=== PATIENT | male | born 1950 | race African-American/Black ===

== ENCOUNTER 2022-01-09 14:13 | Outpatient (REF) | payer MEDICARE, OTHER, SELFPAY ==
[2022-01-09 14:37] LABS: MANUAL DIFF FLAG NO
[2022-01-09 14:41] LABS: Basophils Absolute Auto 0.1 X10*3/uL (0.0-0.2); Basophils Percent Auto 1.1 % (0-2); Eosinophils Absolute Auto 0.3 X10*3/uL (0.0-0.4); Eosinophils Percent Auto 5.4 % (0-4); Hematocrit 38.1 % (42.0-52.0); Hemoglobin 12.3 g/dl (14.0-18.0); Imm Gran Abs Auto 0.01 X10*3/uL (0.00-0.03); Imm Gran Pct Auto 0.2 % (0.0-0.4); Lymphocytes Absolute Auto 1.3 X10*3/uL (1.2-4.9); Lymphocytes Percent Auto 23.1 % (20-40); Mean Corpuscular HGB Conc 32.3 g/dl (31.0-36.0); Mean Corpuscular Hemoglobin 28.2 pg (27.0-33.0); Mean Corpuscular Volume 87.4 fL (80.0-98.0); Mean Platelet Volume 11.2 fL (9.4-12.4); Monocytes Absolute Auto 0.4 X10*3/uL (0.1-1.2); Monocytes Percent Auto 7.7 % (2-11); Neutrophils Absolute Auto 3.4 x10*3/uL (2.0-8.3); Neutrophils Percent Auto 62.5 % (45-73); Platelet Count 163 X10*3/uL (160-400); Red Blood Count 4.36 X10*6/uL (4.60-5.80); Red Cell Distribution Width 15.6 % (11.0-16.0); White Blood Count 5.4 X10*3/uL (4.8-10.8)
== END 2022-01-09 14:14 | disposition home or self-care (01) ==
LOC: HO.LAB 14:13
PROVIDERS: PCP Internal Medicine; Visit Provider Internal Medicine Pulmonary Disease
DX: J45.909 Unspecified asthma, uncomplicated (principal); Z91.09 Other allergy status, other than to drugs and biological substances; G47.33 Obstructive sleep apnea (adult) (pediatric)
CPT/HCPCS: 36415; 82785; 85025; 86003; 99202

== ENCOUNTER 2022-02-14 10:50 | Outpatient (REF) | payer MEDICARE, OTHER, SELFPAY ==
--- NOTE | 2022-02-14 14:43 | PFT_ITS ---
Forced vital capacity 101%, FEV1 88%, FEV1/FVC ratio is 66. [id number] 46% and MVV is 68%. Post-bronchodilator therapy, there is a slight improvement in FEV1 and a rather significant improvement in [id number]. Total lung capacity 87%. Residual volume 92%. Diffusion capacity 58%. CONCLUSION: Obstructive airway disorder, mild to moderate, there is a mild improvement after bronchodilator therapy. These findings suggest asthma/COPD overlap syndrome. Clinical correlation recommended. MD RYLAN Nuñez/MODL / [id number]
== END 2022-02-14 10:51 | disposition home or self-care (01) ==
LOC: HO.RESP 10:50
PROVIDERS: PCP Internal Medicine; Visit Provider Internal Medicine Pulmonary Disease
DX: J45.909 Unspecified asthma, uncomplicated (principal)
CPT/HCPCS: 94060; 94727; 94729

== ENCOUNTER → 2022-02-20 11:09 | Outpatient (BNVA) | payer MEDICARE, OTHER, SELFPAY | PROVIDERS: PCP Internal Medicine; Visit Provider Internal Medicine Pulmonary Disease | DX: J45.909 Unspecified asthma, uncomplicated (principal); G47.33 Obstructive sleep apnea (adult) (pediatric); Z91.09 Other allergy status, other than to drugs and biological substances; Z79.899 Other long term (current) drug therapy | CPT/HCPCS: 99212 ==

== ENCOUNTER 2022-04-07 10:58 | Outpatient (REF) | payer MEDICARE, OTHER, SELFPAY | END 2022-04-07 10:59 | disposition home or self-care (01) | LOC: HO.MDS 10:58 | PROVIDERS: Visit Provider Internal Medicine Pulmonary Disease | DX: J45.50 Severe persistent asthma, uncomplicated (principal) | CPT/HCPCS: 96372 ==

== ENCOUNTER → 2022-05-04 13:21 | Outpatient (BNVA) | payer MEDICARE, OTHER, SELFPAY | PROVIDERS: PCP Internal Medicine; Visit Provider Internal Medicine Pulmonary Disease | DX: Z09 Encounter for follow-up examination after completed treatment for conditions other than malignant neoplasm (principal); J45.909 Unspecified asthma, uncomplicated; G47.33 Obstructive sleep apnea (adult) (pediatric); Z91.09 Other allergy status, other than to drugs and biological substances; Z99.89 Dependence on other enabling machines and devices | CPT/HCPCS: 99212 ==

== ENCOUNTER 2022-05-05 11:05 | Outpatient (REF) | payer MEDICARE, OTHER, SELFPAY | END 2022-05-05 11:06 | disposition home or self-care (01) | LOC: HO.MDS 11:05 | PROVIDERS: Visit Provider Internal Medicine Pulmonary Disease | DX: J45.50 Severe persistent asthma, uncomplicated (principal) | CPT/HCPCS: 96372 ==

== ENCOUNTER 2022-06-02 11:11 | Outpatient (REF) | payer MEDICARE, OTHER, SELFPAY | END 2022-06-02 11:12 | disposition home or self-care (01) | LOC: HO.MDS 11:11 | PROVIDERS: Visit Provider Internal Medicine Pulmonary Disease | DX: J45.50 Severe persistent asthma, uncomplicated (principal) | CPT/HCPCS: 96372; J0517 ==

== ENCOUNTER → 2022-07-14 14:00 | Outpatient (BNVA) | payer MEDICARE, OTHER, SELFPAY | PROVIDERS: PCP Internal Medicine; Visit Provider Internal Medicine Pulmonary Disease | DX: J45.909 Unspecified asthma, uncomplicated (principal); Z91.09 Other allergy status, other than to drugs and biological substances; G47.33 Obstructive sleep apnea (adult) (pediatric) | CPT/HCPCS: 99212 ==

== ENCOUNTER 2022-07-31 14:10 | Outpatient (REF) | payer MEDICARE, OTHER, SELFPAY | END 2022-07-31 14:11 | disposition home or self-care (01) | LOC: HO.MDS 14:10 | PROVIDERS: Visit Provider Internal Medicine Pulmonary Disease | DX: J45.50 Severe persistent asthma, uncomplicated (principal) | CPT/HCPCS: 96372 ==

== ENCOUNTER 2022-09-29 09:04 | Outpatient (REF) | payer MEDICARE, OTHER, SELFPAY | END 2022-09-29 09:05 | disposition home or self-care (01) | LOC: HO.MDS 09:04 | PROVIDERS: Visit Provider Internal Medicine Pulmonary Disease | DX: J45.50 Severe persistent asthma, uncomplicated (principal) | CPT/HCPCS: 96372; J0517 ==

== ENCOUNTER 2022-11-24 09:06 | Outpatient (REF) | payer MEDICARE, OTHER, SELFPAY | END 2022-11-24 09:07 | disposition home or self-care (01) | LOC: HO.MDS 09:06 | PROVIDERS: Visit Provider Internal Medicine Pulmonary Disease | DX: J45.50 Severe persistent asthma, uncomplicated (principal) | CPT/HCPCS: 96372 ==

== ENCOUNTER 2023-01-16 10:24 | Outpatient (AMB) | payer MEDICARE, OTHER, SELFPAY ==
--- NOTE | 2023-01-16 10:28 | MHC.OFFVIS ---
Intake Vital Signs 01/16/23 10:29 Height 6 ft 2 in Weight 178 lb 9.191 oz BMI 22.9 BP 98/58 L Blood Pressure Location Rt brachial Position Sitting Pulse Oximetry (%) 97 Oxygen Delivery Method Room Air Intake Visit Reasons: COPD Allergies No Known Allergies Allergy (Verified 01/16/23 10:35) HPI COPD HPI Details 72-year-old gentleman with underlying history of asthma and MORELIA on ASV, previously followed at [facility] pulmonary, with underlying systolic congestive heart failure with EF of approximately 25%, now followed for persistent allergic asthma and MORELIA.? He has been on Fasenra, Symbicort, Incruse, and duo nebs with good control of his underlying symptoms. He denies recent exacerbations. Today initially noted to have lobe pulse, however EKG demonstrated bigeminy with pulse of 75 bpm. [facility] Medical History (Updated 01/12/23 @ 12:46 by Rhonda Zapata PA-C) ICD (implantable cardioverter-defibrillator) in place Nonischemic cardiomyopathy (HFpEF) heart failure with preserved ejection fraction History of DVT (deep vein thrombosis) Hypertension Hyperlipidemia Type 1 diabetes mellitus Chronic kidney disease, stage 3 PAF (paroxysmal atrial fibrillation) Asthma Environmental allergies MORELIA (obstructive sleep apnea) Hypothyroid Surgical History (Updated 01/12/23 @ 12:47 by Rhonda Zapata PA-C) History of implantable cardiac defibrillator (ICD) History of cardiac radiofrequency ablation History of prostatectomy Review of Systems Const Denies daytime sleepiness, Denies excessive sweating, Denies fatigue, Denies fever(s), Denies lethargy, Denies malaise, Denies night sweats, Denies snoring and Denies weight loss Eyes Denies blurry vision and Denies itchy eyes ENT Denies nasal congestion, Denies post nasal drip, Denies sinus pain, Denies sinus pressure and Denies other ( Thrush) Card Denies chest pain, Denies pedal edema, Denies dyspnea, Denies orthopnea and Denies paroxysmal nocturnal dyspnea Resp Denies cough, Denies hemoptysis, Denies excessive phlegm production, Denies dyspnea, Denies snoring and Denies wheezing GI Denies abdominal pain and Denies heartburn Musc Denies myalgias, Denies arthralgias and Denies joint swelling Skin/Breast Denies rash Neuro Denies memory loss and Denies seizure-like activity Psych Denies abnormal sleep pattern, Denies anxiety and Denies memory loss Endo Denies excessive sweating, Denies fatigue and Denies heat intolerance Felix/Lymph Denies easy bruising Aller/Immun Denies itchy eyes, Denies seasonal rhinorrhea and Denies wheezing Physical Exam Vital Signs: Last Vital Signs BP 98/58 L 01/16/23 10:29 Pulse Ox 97 01/16/23 10:29 Oxygen Delivery Method Room Air 01/16/23 10:29 BMI result Body Mass Index 22.9 Const General: no acute distress and alert Nutritional Appearance: not obese Orientation/consciousness: Other orientation findings ( oriented) HEENT Head: Yes atraumatic Eyes General: appearance normal, both eyes and all related structures Sclerae: sclerae normal EOM: EOMs intact bilaterally Neck Neck: Yes supple Lymphatic: no lymphadenopathy noted Resp Effort & Inspection: normal respiratory effort and no use of accessory muscles Auscultation: clear to auscultation bilaterally Cardio Rate: regular rate Rhythm: regular rhythm Heart sounds: no gallops, no murmurs and no rubs Skin General skin exam: other ( warm) Extrem General: No clubbing, No cyanosis and No edema Assessment & Plan Assessment & Plan (1) Asthma: Code(s): J45.909 - Unspecified asthma, uncomplicated Plan: Well controlled on current regimen of Fasenra, Incruse, Symbicort, and duo nebs. Continue current regimen. (2) MORELIA (obstructive sleep apnea): Code(s): G47.33 - Obstructive sleep apnea (adult) (pediatric) Plan: Well controlled on current ASV therapy. Continue ASV therapy (3) Environmental allergies: Code(s): Z91.09 - Other allergy status, other than to drugs and biological substances Plan: Well controlled on Fasenra. Continue current regimen. Coding Level of Care Code Est Pt Level 4 (92280) Diagnoses Asthma J45.909 MORELIA (obstructive sleep apnea) G47.33 Environmental allergies Z91.09
[2023-01-16 10:29] VITALS: BP 98/58; O2SAT 97; BMI 22.9
== END 2023-01-16 11:00 | disposition home or self-care (01) ==
PROVIDERS: PCP Internal Medicine; Visit Provider Internal Medicine Pulmonary Disease
DX: J45.909 Unspecified asthma, uncomplicated (principal); G47.33 Obstructive sleep apnea (adult) (pediatric); Z91.09 Other allergy status, other than to drugs and biological substances
CPT/HCPCS: 99214

== ENCOUNTER → 2023-01-16 10:24 | Outpatient (BNVA) | payer MEDICARE, OTHER, SELFPAY | PROVIDERS: Visit Provider Internal Medicine Pulmonary Disease | DX: J45.40 Moderate persistent asthma, uncomplicated (principal); G47.33 Obstructive sleep apnea (adult) (pediatric); I11.0 Hypertensive heart disease with heart failure; I50.23 Acute on chronic systolic (congestive) heart failure; Z91.09 Other allergy status, other than to drugs and biological substances | CPT/HCPCS: 99212 ==

== ENCOUNTER 2023-01-19 09:02 | Outpatient (REF) | payer MEDICARE, OTHER, SELFPAY | END 2023-01-19 09:03 | disposition home or self-care (01) | LOC: HO.MDS 09:02 | PROVIDERS: Visit Provider Internal Medicine Pulmonary Disease | DX: J45.50 Severe persistent asthma, uncomplicated (principal) | CPT/HCPCS: 96372 ==

== ENCOUNTER 2023-03-16 10:57 | Outpatient (REF) | payer MEDICARE, OTHER, SELFPAY | END 2023-03-16 10:58 | disposition home or self-care (01) | LOC: HO.MDS 10:57 | PROVIDERS: Visit Provider Internal Medicine Pulmonary Disease | DX: J45.50 Severe persistent asthma, uncomplicated (principal) | CPT/HCPCS: 96372 ==

== ENCOUNTER 2023-05-11 09:35 | Outpatient (REF) | payer MEDICARE, OTHER, SELFPAY ==
[2023-05-11 09:56] VITALS: BP 111/62; PULSE 62; RESP 18; TEMP 36.1
== END 2023-05-11 09:36 | disposition home or self-care (01) ==
LOC: HO.MDS 09:35
PROVIDERS: Visit Provider Internal Medicine Pulmonary Disease
DX: J45.50 Severe persistent asthma, uncomplicated (principal)
CPT/HCPCS: 96372

== ENCOUNTER 2023-07-12 10:15 | Outpatient (AMB) | payer MEDICARE, OTHER, SELFPAY ==
[2023-07-12 10:16] VITALS: BP 100/62; PULSE 60; O2SAT 97; BMI 23.3
--- NOTE | 2023-07-12 10:16 | MHC.OFFVIS ---
Vital Signs 07/12/23 10:16 Height 6 ft 2 in Weight 181 lb 14.102 oz BMI 23.3 BP 100/62 Blood Pressure Location Rt brachial Position Sitting Pulse 60 Pulse Source Doppler Pulse Oximetry (%) 97 Oxygen Delivery Method Room Air Intake Visit Reasons: COPD Allergies No Known Allergies Allergy (Verified 07/12/23 10:26) HPI HPI COPD: Details: 73-year-old gentleman with underlying history of asthma and MORELIA on ASV, previously followed at [facility], with underlying systolic congestive heart failure with EF of approximately 25%, now followed for persistent allergic asthma and MORELIA.? He has been on Fasenra, Symbicort, Incruse, and duo nebs with good control of his underlying symptoms. He denies recent exacerbations. [facility] Medical History (Updated 01/12/23 @ 12:46 by Rhonda Zapata PA-C) ICD (implantable cardioverter-defibrillator) in place Nonischemic cardiomyopathy (HFpEF) heart failure with preserved ejection fraction History of DVT (deep vein thrombosis) Hypertension Hyperlipidemia Type 1 diabetes mellitus Chronic kidney disease, stage 3 PAF (paroxysmal atrial fibrillation) Asthma Environmental allergies MORELIA (obstructive sleep apnea) Hypothyroid Surgical History (Updated 01/12/23 @ 12:47 by Rhonda Zapata PA-C) History of implantable cardiac defibrillator (ICD) History of cardiac radiofrequency ablation History of prostatectomy Review of Systems Const Denies daytime sleepiness, Denies excessive sweating, Denies fatigue, Denies fever(s), Denies lethargy, Denies malaise, Denies night sweats, Denies snoring and Denies weight loss Eyes Denies blurry vision and Denies itchy eyes ENT Denies nasal congestion, Denies post nasal drip, Denies sinus pain, Denies sinus pressure and Denies other ( Thrush) Card Denies chest pain, Denies pedal edema, Denies dyspnea, Denies orthopnea and Denies paroxysmal nocturnal dyspnea Resp Denies cough, Denies hemoptysis, Denies excessive phlegm production, Denies dyspnea, Denies snoring and Denies wheezing GI Denies abdominal pain and Denies heartburn Musc Denies myalgias, Denies arthralgias and Denies joint swelling Skin/Breast Denies rash Neuro Denies memory loss and Denies seizure-like activity Psych Denies abnormal sleep pattern, Denies anxiety and Denies memory loss Endo Denies excessive sweating, Denies fatigue and Denies heat intolerance Felix/Lymph Denies easy bruising Aller/Immun Denies itchy eyes, Denies seasonal rhinorrhea and Denies wheezing Physical Exam Vital Signs: Last Vital Signs Pulse 60 07/12/23 10:16 BP 100/62 07/12/23 10:16 Pulse Ox 97 07/12/23 10:16 Oxygen Delivery Method Room Air 07/12/23 10:16 BMI result Body Mass Index 23.3 Const General: no acute distress and alert Nutritional Appearance: not obese Orientation/consciousness: Other orientation findings ( oriented) HEENT Head: Yes atraumatic Eyes General: appearance normal, both eyes and all related structures Sclerae: sclerae normal EOM: EOMs intact bilaterally Neck Neck: Yes supple Lymphatic: no lymphadenopathy noted Resp Effort & Inspection: normal respiratory effort and no use of accessory muscles Auscultation: clear to auscultation bilaterally Cardio Rate: regular rate Rhythm: regular rhythm Heart sounds: no gallops, no murmurs and no rubs Skin General skin exam: other ( warm) Extrem General: No clubbing, No cyanosis and No edema Assessment & Plan Assessment & Plan (1) Asthma: Code(s): J45.909 - Unspecified asthma, uncomplicated Category: Medical Plan: Well controlled current regimen of Fasenra, Breo, Incruse, duo nebs, and albuterol MDI. Continue current regimen. (2) Environmental allergies: Code(s): Z91.09 - Other allergy status, other than to drugs and biological substances Category: Medical Plan: Well controlled on Fasenra. Continue current regimen. (3) MORELIA (obstructive sleep apnea): Code(s): G47.33 - Obstructive sleep apnea (adult) (pediatric) Category: Medical Plan: Well controlled on current ASV therapy. Continue current NIPPV therapy. Coding Level of Care Code Est Pt Level 4 (10762) Diagnoses Asthma J45.909 Environmental allergies Z91.09 MORELIA (obstructive sleep apnea) G47.33
== END 2023-07-12 10:36 | disposition home or self-care (01) ==
PROVIDERS: PCP Internal Medicine; Visit Provider Internal Medicine Pulmonary Disease
DX: J45.909 Unspecified asthma, uncomplicated (principal); Z91.09 Other allergy status, other than to drugs and biological substances; G47.33 Obstructive sleep apnea (adult) (pediatric)
CPT/HCPCS: 99214

== ENCOUNTER → 2023-07-12 10:15 | Outpatient (BNVA) | payer MEDICARE, OTHER, SELFPAY | PROVIDERS: PCP Internal Medicine; Visit Provider Internal Medicine Pulmonary Disease | DX: J45.909 Unspecified asthma, uncomplicated (principal); Z91.09 Other allergy status, other than to drugs and biological substances; G47.33 Obstructive sleep apnea (adult) (pediatric) | CPT/HCPCS: 99212 ==

== ENCOUNTER 2024-01-17 10:24 | Outpatient (AMB) | payer MEDICARE, OTHER, SELFPAY ==
[2024-01-17 10:30] VITALS: BP 102/66; PULSE 81; O2SAT 97; BMI 24.0
--- NOTE | 2024-01-17 10:30 | MHC.OFFVIS ---
Vital Signs 01/17/24 10:30 Height 6 ft 2 in Weight 187 lb BMI 24.0 BP 102/66 Blood Pressure Location Rt brachial Position Sitting Pulse 81 Pulse Source Doppler Pulse Oximetry (%) 97 Oxygen Delivery Method Room Air Intake Visit Reasons: COPD Allergies reglan Adverse Reaction (Severe, Uncoded 01/17/24 10:35) Tremors HPI HPI COPD: Details: 73-year-old gentleman with underlying history of asthma and MORELIA on ASV, previously followed at [facility], with underlying systolic congestive heart failure with EF of approximately 25%, now followed for persistent allergic asthma and MORELIA.? He has been on Fasenra, Dulera, Incruse, and duo nebs with good baseline control of his underlying symptoms. Today he complains of an acute exacerbation that started around the time he his COVID vaccination and is now symptomatic with cough productive of increased amount of sputum and also some postnasal drip. [facility] Medical History (Updated 07/18/23 @ 15:38 by Nils Hart MD) ICD (implantable cardioverter-defibrillator) in place Nonischemic cardiomyopathy (HFpEF) heart failure with preserved ejection fraction History of DVT (deep vein thrombosis) Hypertension Hyperlipidemia Type 1 diabetes mellitus Chronic kidney disease, stage 3 PAF (paroxysmal atrial fibrillation) Asthma Environmental allergies MORELIA (obstructive sleep apnea) Hypothyroid Surgical History (Updated 01/12/23 @ 12:47 by Rhonda Zapata PA-C) History of implantable cardiac defibrillator (ICD) History of cardiac radiofrequency ablation History of prostatectomy Review of Systems ENT Reports nasal congestion and Reports post nasal drip Card Denies chest pain Resp Reports cough and Reports excessive phlegm production Physical Exam Vital Signs: Last Vital Signs Pulse 81 01/17/24 10:30 BP 102/66 01/17/24 10:30 Pulse Ox 97 01/17/24 10:30 Oxygen Delivery Method Room Air 01/17/24 10:30 BMI result Body Mass Index 24.0 Const General: no acute distress and alert Nutritional Appearance: not obese Orientation/consciousness: Other orientation findings ( oriented) HEENT Head: Yes atraumatic Eyes General: appearance normal, both eyes and all related structures Sclerae: sclerae normal EOM: EOMs intact bilaterally Neck Neck: Yes supple Lymphatic: no lymphadenopathy noted Resp Effort & Inspection: normal respiratory effort and no use of accessory muscles Auscultation: clear to auscultation bilaterally Cardio Rate: regular rate Rhythm: regular rhythm Heart sounds: no gallops, no murmurs and no rubs Skin General skin exam: other ( warm) Extrem General: No clubbing and No cyanosis Assessment & Plan Assessment & Plan (1) MORELIA (obstructive sleep apnea): Code(s): G47.33 - Obstructive sleep apnea (adult) (pediatric) Category: Medical Plan: Well controlled on noninvasive positive pressure ventilation. Continue current regimen. (2) Severe persistent asthma: Code(s): J45.50 - Severe persistent asthma, uncomplicated Category: Medical Plan: Baseline controlled on Dulera, Incruse, duo nebs, Fasenra, and albuterol MDI. Continue current regimen. Now with a bronchitic exacerbation, will treat with a course of azithromycin. (3) Environmental allergies: Code(s): Z91.09 - Other allergy status, other than to drugs and biological substances Category: Medical Plan: Reasonable control on Fasenra. Continue current regimen. Medications: New azithromycin For 250 mg dose pack: take 500 mg today (day 1), then 250 mg for 4 days (days 2-5) PO 6 tabs 0RF Coding Level of Care Code Est Pt Level 4 (39053) Complex EM visit Add On G2211 Diagnoses MORELIA (obstructive sleep apnea) G47.33 Severe persistent asthma J45.50 Environmental allergies Z91.09
== END 2024-01-17 10:52 | disposition home or self-care (01) ==
LOC: HO.HPS 10:25
PROVIDERS: PCP Internal Medicine; Visit Provider Internal Medicine Pulmonary Disease
DX: G47.33 Obstructive sleep apnea (adult) (pediatric) (principal); J45.50 Severe persistent asthma, uncomplicated; Z91.09 Other allergy status, other than to drugs and biological substances
CPT/HCPCS: 99214; G2211

== ENCOUNTER → 2024-01-17 10:24 | Outpatient (BNVA) | payer MEDICARE, OTHER, SELFPAY | PROVIDERS: PCP Internal Medicine; Visit Provider Internal Medicine Pulmonary Disease | DX: J45.50 Severe persistent asthma, uncomplicated (principal); G47.33 Obstructive sleep apnea (adult) (pediatric); Z91.09 Other allergy status, other than to drugs and biological substances | CPT/HCPCS: 99212 ==

== ENCOUNTER 2024-07-22 14:34 | Outpatient (AMB) | payer MEDICARE, OTHER, SELFPAY ==
[2024-07-22 14:42] VITALS: BP 104/62; PULSE 79; O2SAT 98; BMI 25.0
--- NOTE | 2024-07-22 14:42 | MHC.OFFVIS ---
Vital Signs 07/22/24 14:42 Height 6 ft 2 in Weight 195 lb BMI 25.0 BP 104/62 Blood Pressure Location Rt brachial Position Sitting Pulse 79 Pulse Source Pulse Oximeter Pulse Oximetry (%) 98 Oxygen Delivery Method Room Air Intake Visit Reasons: COPD Allergies reglan Adverse Reaction (Severe, Uncoded 01/17/24 10:35) Tremors HPI HPI COPD: Details: 74-year-old gentleman with underlying history of asthma and MORELIA on ASV, previously followed at [facility], with underlying systolic congestive heart failure with EF of approximately 25%, now followed for persistent allergic asthma and MORELIA.? He has been on Fasenra, Dulera, Incruse, and duo nebs with good baseline control of his underlying symptoms. He denies recent exacerbations. He is compliant with his ASV therapy. [facility] Medical History (Updated 07/18/23 @ 15:38 by Nils Hart MD) ICD (implantable cardioverter-defibrillator) in place Nonischemic cardiomyopathy (HFpEF) heart failure with preserved ejection fraction History of DVT (deep vein thrombosis) Hypertension Hyperlipidemia Type 1 diabetes mellitus Chronic kidney disease, stage 3 PAF (paroxysmal atrial fibrillation) Asthma Environmental allergies MORELIA (obstructive sleep apnea) Hypothyroid Surgical History (Updated 01/12/23 @ 12:47 by Rhonda Zapata PA-C) History of implantable cardiac defibrillator (ICD) History of cardiac radiofrequency ablation History of prostatectomy Review of Systems Const Denies daytime sleepiness, Denies excessive sweating, Denies fatigue, Denies fever(s), Denies lethargy, Denies malaise, Denies night sweats, Denies snoring and Denies weight loss Eyes Denies blurry vision and Denies itchy eyes ENT Denies nasal congestion, Denies post nasal drip, Denies sinus pain, Denies sinus pressure and Denies other ( Thrush) Card Denies chest pain, Denies pedal edema, Denies dyspnea, Denies orthopnea and Denies paroxysmal nocturnal dyspnea Resp Denies cough, Denies hemoptysis, Denies excessive phlegm production, Denies dyspnea, Denies snoring and Denies wheezing GI Denies abdominal pain and Denies heartburn Musc Denies myalgias, Denies arthralgias and Denies joint swelling Skin/Breast Denies rash Neuro Denies memory loss and Denies seizure-like activity Psych Denies abnormal sleep pattern, Denies anxiety and Denies memory loss Endo Denies excessive sweating, Denies fatigue and Denies heat intolerance Felix/Lymph Denies easy bruising Aller/Immun Denies itchy eyes, Denies seasonal rhinorrhea and Denies wheezing Physical Exam Vital Signs: Last Vital Signs Pulse 79 07/22/24 14:42 BP 104/62 07/22/24 14:42 Pulse Ox 98 07/22/24 14:42 Oxygen Delivery Method Room Air 07/22/24 14:42 BMI result Body Mass Index 25.0 Const General: no acute distress and alert Nutritional Appearance: not obese Orientation/consciousness: Other orientation findings ( oriented) HEENT Head: Yes atraumatic Eyes General: appearance normal, both eyes and all related structures Sclerae: sclerae normal EOM: EOMs intact bilaterally Neck Neck: Yes supple Lymphatic: no lymphadenopathy noted Resp Effort & Inspection: normal respiratory effort and no use of accessory muscles Auscultation: clear to auscultation bilaterally Cardio Rate: regular rate Rhythm: regular rhythm Heart sounds: no gallops, no murmurs and no rubs Skin General skin exam: other ( warm) Extrem General: No clubbing, No cyanosis and No edema Assessment & Plan Assessment & Plan (1) Severe persistent asthma: Code(s): J45.50 - Severe persistent asthma, uncomplicated Category: Medical Plan: Well controlled on current regimen of Fasenra, Dulera, duo nebs, and albuterol MDI. Continue current regimen. (2) Environmental allergies: Code(s): Z91.09 - Other allergy status, other than to drugs and biological substances Category: Medical Plan: Well controlled on Fasenra. Continue current regimen. (3) MORELIA (obstructive sleep apnea): Code(s): G47.33 - Obstructive sleep apnea (adult) (pediatric) Category: Medical Plan: Well controlled on current ASV therapy. Continue current regimen. Medications: Refilled Ventolin HFA 90 mcg/actuation (albuterol sulfate) 2 puffs inhalation Q4-6H PRN 18 ea 6RF for wheezing NS mometasone-formoterol 200-5 mcg/actuation (Dulera) 2 puffs inhalation BID 1 ea 6RF Coding Level of Care Code Est Pt Level 4 (19607) Complex EM visit Add On G2211 Diagnoses Severe persistent asthma J45.50 Environmental allergies Z91.09 MORELIA (obstructive sleep apnea) G47.33
--- OUTSIDE RECORDS SUMMARY | 2024-07-22 15:42 | XMS_ITS | Encounter Summary ---
Author Organization [facility] Address [address] [place] [address] Phone Care Team Providers Care Parent Trainer Name Role Phone Marilia Zhang MD Primary Care Provider [phone] Reason for Visit * Reason Comments Med Refill Encounter Details Date Type Department Care Team (Late st Contact Info) Description 02/11/2024 Refill [facility] [address] [address] Maxime Vargas DO [address] [place] [address] Social History Tobacco Use Types Packs/Day Years Used Date Smoking Tobacco: Never Alcohol Use Standard Drinks/Week Comments Yes 0 (1 standard drink = 0.6 oz pure alcohol) Alcoholic Drinks/day: Occasional social drink Sex and Gender Information Value Date Recorded Sex Assigned at Not on file Legal Sex Male 4:35 PM EST Gender Identity Not on file Sexual Orientation Not on file documented as of this encounter Plan of Treatment Upcoming Encounters Date Type Department Care Team (Late st Contact Info) Description 08/15/2024 3:45 PM EDT Office Visit [facility] [address] [place] [id number] Maxime Vargas DO [address] [place] [address] documented as of this encounter Visit Diagnoses Not on filedocumented in this encounter Care Teams Parent Trainer Relationship Specialty Start Date End Date Marilia Zhang MD [address] [place] [address] PCP - General 01/14/19 documented as of this encounter
--- OUTSIDE RECORDS SUMMARY | 2024-07-22 15:42 | XMS_ITS | Clinical Summary ---
Author Organization [facility], Address [address] [place] [address] Phone Care Team Providers Care Car Starter Name Role Phone Marilia Zhang MD Primary Care Provider [phone] Allergies Active Allergy Reactions Criticality Noted Date Comments Bee Pollen Other (see comments) 03/04/2019 Other reaction(s): Other (See Comments) Tree Pollens not Bee pollens Tree Pollens not Bee pollens Cat Dander Anaphylaxis High 12/17/2020 Grass Pollen Standardized Ext 08/18/2021 Other reaction(s): asthma attack Molds & Smuts 08/18/2021 Other reaction(s): asthma attack Other 08/18/2021 Other reaction(s): mouth and throat swells Peanut (Diagnostic) High 12/06/2017 Other reaction(s): Angiodema Pollen Extract Other (see comments) 03/04/2019 Medications apixaban (ELIQUIS) 5 MG tablet Take 5 mg by mouth twice a day Active budesonide-form oterol (SYMBICORT) 160-4.5 MCG/ACT inhaler Comments: Filled Date: Apr 22 2018 12:00AM Patient Notes: TAKE 2 PUFFS BY MOUTH TWICE A DAY *USE WITH SPACER CHAMBER RINSE MOUTH AND THROAT AFTER USE Duration: 90 9 Active fexofenadine (PERLA) 180 MG tablet Take 1 tablet by mouth 1 (one) time each day Active fluticasone (VERAMYST) 27.5 MCG/SPRAY nasal spray Administer 1 spray into affected nostril(s) daily Active insulin aspart (NOVOLOG) 100 UNIT/ML injection Comments: Filled Date: Mar 11 2018 12:00AM Patient Notes: USE VIA INSULIN PUMP, UP TO 50 UNITS PER DAY Duration: 90 8 Active insulin glargine (LANTUS SOLOSTAR) 100 UNIT/ML injection Inject 17 Units under the skin daily 9 Active torsemide (DEMADEX) 20 MG tablet Take 20 mg by mouth in the morning and 20 mg in the evening. Active ASPIRIN 81 PO Take 1 tablet by mouth 1 (one) time each day Active pantoprazole (PROTONIX) 40 MG EC tablet 9 Active Blood Pressure kit 1 kit 1 (one) time each day To check blood pressure at home 1 each 0 Active Insulin Disposable Pump (OMNIPOD 5 PACK) misc 0 Active sacubitril-vals jean carlos (Entresto) 49-51 MG per tablet Take 1 tablet by mouth 2 (two) times a day Active metoprolol succinate XL (TOPROL XL) 50 MG 24 hr tablet Take 75 mg by mouth 1 (one) time each day 2 Active levothyroxine (SYNTHROID, LEVOTHROID) 25 MCG tablet TAKE 1 TABLET (25 MCG) BY ORAL ROUTE ONCE DAILY ON AN EMPTY STOMACH 30 MINUTES BEFORE BREAKFAST 2 Active spironolactone (ALDACTONE) 25 MG tablet Take 25 mg by mouth 1 (one) time each day Active torsemide (DEMADEX) 10 MG tablet Take 10 mg by mouth 1 (one) time each day Active Active Problems Problem Noted Date Diagnosed Date Carcinoma of prostate 06/01/2021 Chronic systolic heart failure 06/02/2020 Stage 3b chronic kidney disease 03/04/2019 Edema 03/04/2019 Hyperuricemia 03/04/2019 Hypertension 06/04/2017 Overview (03/04/2019): Last Assessment & Plan: Blood pressure is in good range today Clinically euvolemic though occ symptoms suggest that he may be hypovolemic, we discussed fine line between avoiding fluid overload and effects of this on cardiac function and also keeping kidneys well perfused, doing well overall with fluid and sodium restrictions Type 1 diabetes mellitus 02/14/2017 Overview (03/04/2019): DIABETES HISTORY Diagnosis - type 1, dx 1998 Last Assessment & Plan: Blood pressure is in excellent range Continues on insulin pump therapy and has been utilizing CGM Blood sugars in past two weeks are improved compared to earlier this summer though remain somewhat above goal, I expect repeat A1c will be improved based on these patterns, current A1c reflects the more consistent and significant hyperglycemia of several weeks ago Based on more recent data and likely improvement based on insulin delivery changes made today, Александр is likely ok to go ahead with surgery (if surgeon agreeable) if this is of a somewhat urgent nature Insulin pump present 02/14/2017 Overview (06/02/2020): Omnipod started 04/01/07 Dexcom G5 started 07/09/18 Last Assessment & Plan: Current insulin pump setting Time Basal Rates? Time ICR Time ISF Time Target IOB 12am 0.3 u/hr 12am 1:9 12 am 1:40 12 am 120 mg/dl 4hrs 4a 0.75 11a 10 ? 11a 0.6 5p 8 ? 4p 0.75 ? 930p 0.4 ? We did not adjust insulin pump settings today We discussed CGM data Immunizations Immunization Administration Dates Next Due Hepatitis B 04/21/2019(Deferred: Other) Moderna SARS-COV-2 01/14/2021,04/30/2020, 021 Shingrix 02/14/2021 Family History Medical History Relation Comments Heart failure Mother Relation Status Comments Mother Social History Tobacco Use Types Packs/Day Years Used Date Smoking Tobacco: Never Alcohol Use Standard Drinks/Week Comments Yes 0 (1 standard drink = 0.6 oz pure alcohol) Alcoholic Drinks/day: Occasional social drink Sex and Gender Information Value Date Recorded Sex Assigned at Not on file Legal Sex Male 4:35 PM EST Gender Identity Not on file Sexual Orientation Not on file Last Filed Vital Signs Vital Sign Reading Time Taken Comments Blood Pressure 94/50 04/11/2024 3:15 PM EST Pulse 68 04/11/2024 3:15 PM EST Temperature - - Respiratory Rate - - Oxygen Saturation - - Inhaled Oxygen Concentration - - Weight 85.7 kg (189 lb) 04/11/2024 3:15 PM EST Height 188 cm (6' 2 ) 01/31/2019 12:00 PM EST Body Mass Index 24.27 01/31/2019 12:00 PM EST Plan of Treatment Upcoming Encounters Date Type Department Care Team (Late st Contact Info) Description 08/15/2024 3:45 PM EDT Office Visit [facility], [address] [place] [address] Maxime Vargas DO [address] [place] [id number] Health Maintenance Due Date Last Done Comments Pneumococcal Vaccine: 50+ Years (1 of 2 - PCV) 1969 Colorectal Cancer Screening: Annual FOBT 05/19/1999 Colorectal Cancer Screening: Colonoscopy 05/19/1999 Colorectal Cancer Screening: Sigmoidoscopy 05/19/1999 Diabetes: Ophthalmology Exam 03/04/2019 Diabetes: Pedal Pulse Checked 03/04/2019 Diabetes: Sensory Foot Exam 03/04/2019 Diabetes: Visual Foot Exam 03/04/2019 Diabetes: Hemoglobin A1C 03/29/2024 024, 12/03/2023, 10/03/2023, Additional history exists Influenza Vaccine (Season Ended) 2024 Hepatitis B Vaccine Aged Out No longe r eligible based on patient's age to complete this topic Procedures Procedure Name Priority Date/Time Associated Diagnosis Comments HEMOGLOBIN A1C Routine 12/28/2023 10:37 AM EDT Stage 3b chronic kidney disease (HCC) 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 Prediabetes: 5.7 - 6.4 ? Diabetes: >6.4 ? Glycemic control for adults with diabetes: <7.0 Blood (Blood, Venous) 12/28/2023 10:37 AM EDT 12/28/2023 us Maxime Vargas DO LAB BLOOD ORDERABLES Final [facility] [address] [place] [address] from Last 3 Months or Most Recently Relevant to Health Maintenance Insurance Medicare [facility] Care Teams Car Starter Relationship Specialty Start Date End Date Marilia Zhang MD [address] [place] [address] PCP - General 01/14/19
--- OUTSIDE RECORDS SUMMARY | 2024-07-22 15:42 | XMS_ITS | Encounter Summary ---
Author Organization [facility], Address [address] [place] [address] Phone Care Team Providers Care Eviscerator Name Role Phone Marilia Zhang MD Primary Care Provider [phone] Encounter Details Date Type Department Care Team (Late st Contact Info) Description 09/29/2022 Documentation Only [facility] [address] [place] [address] Maxime Vargas DO [address] [place] [address] Social History Tobacco Use Types [...] Visit [facility] [address] [place] [address] Maxime Vargas DO [address] [place] [address] documented as of this encounter Visit Diagnoses Not on filedocumented in this encounter Care Teams Eviscerator Relationship Specialty Start Date End Date Marilia Zhang MD [address] [place] [address] PCP - General 01/14/19 documented as of this encounter
--- OUTSIDE RECORDS SUMMARY | 2024-07-22 15:42 | XMS_ITS | Encounter Summary ---
Author Organization [facility] [place], Address [address] [place] [address] Phone Care Team Providers Care Pharmacy Technician Infusion Name Role Phone Marilia Zhang MD Primary Care Provider [phone] Encounter Details Date Type Department Care Team (Late st Contact Info) Description 04/10/2024 Documentation Only [facility] [address] [place] [address] Maxime Vargas DO [address] [place] [address] Social History Tobacco Use Types [...] Visit [facility] [address] [place] [address] Maxime Vargas DO [address] [place] [address] documented as of this encounter Visit Diagnoses Not on filedocumented in this encounter Care Teams Pharmacy Technician Infusion Relationship Specialty Start Date End Date Marilia Zhang MD [address] [place] [address] PCP - General 01/14/19 documented as of this encounter
--- OUTSIDE RECORDS SUMMARY | 2024-07-22 15:42 | XMS_ITS | Encounter Summary ---
Author Organization [facility] [place], Address [address] [place] [address] Phone Care Team Providers Care Microsoft Systems Engineer Name Role Phone Marilia Zhang MD Primary Care Provider [phone] Encounter Details Date Type Department Care Team (Late st Contact Info) Description 12/07/2022 Documentation Only [facility] [address] [place] [address] Maxime Vargas DO [address] [place] [address] Social History Tobacco Use Types [...] Visit [facility] [address] [place] [address] Maxime Vargas DO [address] [place] [address] documented as of this encounter Visit Diagnoses Not on filedocumented in this encounter Care Teams Microsoft Systems Engineer Relationship Specialty Start Date End Date Marilia Zhang MD [address] [place] [address] PCP - General 01/14/19 documented as of this encounter
== END 2024-07-22 15:04 | disposition home or self-care (01) ==
LOC: HO.HPS 14:34
PROVIDERS: PCP Internal Medicine; Visit Provider Internal Medicine Pulmonary Disease
DX: J45.50 Severe persistent asthma, uncomplicated (principal); Z91.09 Other allergy status, other than to drugs and biological substances; G47.33 Obstructive sleep apnea (adult) (pediatric)
CPT/HCPCS: 99214; G2211

== ENCOUNTER → 2024-07-22 14:34 | Outpatient (BNVA) | payer MEDICARE, OTHER, SELFPAY | PROVIDERS: PCP Internal Medicine; Visit Provider Internal Medicine Pulmonary Disease | DX: J45.50 Severe persistent asthma, uncomplicated (principal); G47.33 Obstructive sleep apnea (adult) (pediatric); Z91.09 Other allergy status, other than to drugs and biological substances | CPT/HCPCS: 99212 ==

== ENCOUNTER 2024-12-17 14:22 | Outpatient (AMB) | payer MEDICARE, OTHER, SELFPAY ==
--- NOTE | 2024-12-17 14:23 | MHC.OFFVIS ---
Vital Signs 12/17/24 14:24 Height 6 ft 2 in Weight 197 lb BMI 25.3 BP 104/58 L Blood Pressure Location Rt brachial Position Sitting Pulse 89 Pulse Source Pulse Oximeter Pulse Oximetry (%) 96 Oxygen Delivery Method Room Air Intake Visit Reasons: COPD Allergies reglan Adverse Reaction (Severe, Uncoded 01/17/24 10:35) Tremors HPI HPI COPD: Details: 74-year-old gentleman with underlying history of asthma and MORELIA on ASV, previously followed at [facility], with underlying systolic congestive heart failure with EF of approximately 25%, now followed for persistent allergic asthma and MORELIA.? He has been on Fasenra, Dulera, Incruse, and duo nebs with good baseline control of his underlying symptoms. He denies recent exacerbations. He is compliant with his ASV therapy. No significant changes since prior. [facility] Medical History (Updated 07/18/23 @ 15:38 by Nils Hart MD) ICD (implantable cardioverter-defibrillator) in place Nonischemic cardiomyopathy (HFpEF) heart failure with preserved ejection fraction History of DVT (deep vein thrombosis) Hypertension Hyperlipidemia Type 1 diabetes mellitus Chronic kidney disease, stage 3 PAF (paroxysmal atrial fibrillation) Asthma Environmental allergies MORELIA (obstructive sleep apnea) Hypothyroid Surgical History (Updated 01/12/23 @ 12:47 by Rhonda Zapata PA-C) History of implantable cardiac defibrillator (ICD) History of cardiac radiofrequency ablation History of prostatectomy Review of Systems Const Denies daytime sleepiness, Denies excessive sweating, Denies fatigue, Denies fever(s), Denies lethargy, Denies malaise, Denies night sweats, Denies snoring and Denies weight loss Eyes Denies blurry vision and Denies itchy eyes ENT Denies nasal congestion, Denies post nasal drip, Denies sinus pain, Denies sinus pressure and Denies other ( Thrush) Card Denies chest pain, Denies pedal edema, Denies dyspnea, Denies orthopnea and Denies paroxysmal nocturnal dyspnea Resp Denies cough, Denies hemoptysis, Denies excessive phlegm production, Denies dyspnea, Denies snoring and Denies wheezing GI Denies abdominal pain and Denies heartburn Musc Denies myalgias, Denies arthralgias and Denies joint swelling Skin/Breast Denies rash Neuro Denies memory loss and Denies seizure-like activity Psych Denies abnormal sleep pattern, Denies anxiety and Denies memory loss Endo Denies excessive sweating, Denies fatigue and Denies heat intolerance Felix/Lymph Denies easy bruising Aller/Immun Denies itchy eyes, Denies seasonal rhinorrhea and Denies wheezing Physical Exam Vital Signs: Last Vital Signs Pulse 89 12/17/24 14:24 BP 104/58 L 12/17/24 14:24 Pulse Ox 96 12/17/24 14:24 Oxygen Delivery Method Room Air 12/17/24 14:24 BMI result Body Mass Index 25.3 Const General: no acute distress and alert Nutritional Appearance: not obese Orientation/consciousness: Other orientation findings ( oriented) HEENT Head: Yes atraumatic Eyes General: appearance normal, both eyes and all related structures Sclerae: sclerae normal EOM: EOMs intact bilaterally Neck Neck: Yes supple Lymphatic: no lymphadenopathy noted Resp Effort & Inspection: normal respiratory effort and no use of accessory muscles Auscultation: clear to auscultation bilaterally Cardio Rate: regular rate Rhythm: regular rhythm Heart sounds: no gallops, no murmurs and no rubs Skin General skin exam: other ( warm) Extrem General: No clubbing, No cyanosis and No edema Assessment & Plan Assessment & Plan (1) Severe persistent asthma: Code(s): J45.50 - Severe persistent asthma, uncomplicated Category: Medical Plan: Well controlled on current regimen of Fasenra, Dulera, duo nebs, and albuterol MDI. Continue current regimen. (2) Environmental allergies: Code(s): Z91.09 - Other allergy status, other than to drugs and biological substances Category: Medical Plan: Well controlled on Fasenra and Flonase. Continue current regimen. (3) MORELIA (obstructive sleep apnea): Code(s): G47.33 - Obstructive sleep apnea (adult) (pediatric) Category: Medical Plan: Well controlled on current ASV therapy. Continue current regimen. Medications: Changed From fluticasone propionate 50 mcg/actuation 1 spray intranasal DAILY To fluticasone propionate 50 mcg/actuation 1 spray intranasal DAILY PRN 16 grams 3RF allergy symptoms Coding Level of Care Code Est Pt Level 4 (36691) Complex EM visit Add On G2211 Diagnoses Severe persistent asthma J45.50 Environmental allergies Z91.09 MORELIA (obstructive sleep apnea) G47.33
[2024-12-17 14:24] VITALS: BP 104/58; PULSE 89; O2SAT 96; BMI 25.3
== END 2024-12-17 14:38 | disposition home or self-care (01) ==
LOC: HO.HPS 14:22
PROVIDERS: PCP Internal Medicine; Visit Provider Internal Medicine Pulmonary Disease
DX: J45.50 Severe persistent asthma, uncomplicated (principal); Z91.09 Other allergy status, other than to drugs and biological substances; G47.33 Obstructive sleep apnea (adult) (pediatric)
CPT/HCPCS: 99214; G2211

== ENCOUNTER → 2024-12-17 14:22 | Outpatient (BNVA) | payer MEDICARE, OTHER, SELFPAY | PROVIDERS: PCP Internal Medicine; Visit Provider Internal Medicine Pulmonary Disease | DX: J45.50 Severe persistent asthma, uncomplicated (principal); Z91.09 Other allergy status, other than to drugs and biological substances; G47.33 Obstructive sleep apnea (adult) (pediatric) | CPT/HCPCS: 99212 ==